=== PATIENT | male | born 1990 | race American Indian/Alaskan Native ===

== ENCOUNTER 2017-07-25 09:48 | Emergency (ER) | payer SELFPAY ==
[2017-07-25 10:10] VITALS: BP 152/91
[2017-07-25] MEDS ORDERED: TESSALON PERLES PO ONE (13:28)
--- NOTE | 2017-07-25 14:13 | XRay Report ---
ROUTINE CHEST, TWO VIEWS: HISTORY: Cough. The trachea, heart, mediastinal contour, lung hopper and bony thorax are unremarkable. IMPRESSION: Unremarkable chest x-ray.
--- NOTE | 2017-07-25 14:53 | Emergency Department Report ---
- General Chief Complaint: Upper Respiratory Infection Stated Complaint: COLD Time Seen by Provider: 07/25/17 13:28 Source: patient Mode of arrival: Ambulatory Limitations: No Limitations - History of Present Illness Initial Comments: This is a 26-year-old male nontoxic, well nourished in appearance, no acute signs of distress presents to the ED with c/o of productive cough and body aches 2 weeks. Patient denies any chest pain, shortness of breath, fever, chills, nausea, vomiting, wheezing, back pain, abdominal pain, numbness, tingling headache or stiff neck. Patient denies any sick contacts. Denies recent travels, long car rides or recent hospital stays. Abdomen the calf pain or calf tenderness. Denies hemoptysis. Patient states allergies to ibuprofen. Past medical history includes asthma and HIV. Patient stated follows up with a infection disease doctor and stated his CD4 count is normal in the 900s. MD Complaint: cough -: week(s) (2) Severity: mild Severity scale (0 -10): 0 Consistency: constant Improves With: nothing Worsens With: nothing Associated Symptoms: cough. denies: fever, chills, myalgias, diaphoresis, headache, rhinorrhea, nasal congestion, sore throat, stiff neck, chest pain, shortness of breath, abdominal pain, nausea, vomiting, diarrhea, dysuria, rash, confusion, right sweats, weight loss, epistaxis, hoarseness, ear pain Treatments Prior to Arrival: none - Related Data Previous Rx's Medication Instructions Recorded Last Taken Type Azithromycin [Zithromax Z-SALONI] 250 mg PO DAILY #6 tablet 07/25/17 Unknown Rx Benzonatate [Tessalon Perle] 100 mg PO Q6H #20 capsule 07/25/17 Unknown Rx Allergies Allergy/AdvReac Type Severity Reaction Status Date / Time ibuprofen Allergy Nausea Verified 07/25/17 10:06 ED Review of Systems ROS: Stated complaint: COLD Other details as noted in HPI Constitutional: denies: chills, fever Eyes: denies: eye pain, eye discharge, vision change ENT: denies: ear pain, throat pain Respiratory: cough. denies: shortness of breath, wheezing Cardiovascular: denies: chest pain, palpitations Endocrine: no symptoms reported Gastrointestinal: denies: abdominal pain, nausea, diarrhea Genitourinary: denies: urgency, dysuria Musculoskeletal: denies: back pain, joint swelling, arthralgia Skin: denies: rash, lesions Neurological: denies: headache, weakness, paresthesias Psychiatric: denies: anxiety, depression Hematological/Lymphatic: denies: easy bleeding, easy bruising ED Past Medical Hx - Past Medical History Previous Medical History?: Yes Hx Psychiatric Treatment: Yes (polysubstance abuse) Hx Asthma: Yes Hx HIV: Yes - Surgical History Past Surgical History?: No - Social History Smoking Status: Never Smoker Substance Use Type: Prescribed - Medications Home Medications: Home Medications Medication Instructions Recorded Confirmed Last Taken Type Azithromycin [Zithromax Z-SALONI] 250 mg PO DAILY #6 tablet 07/25/17 Unknown Rx Benzonatate [Tessalon Perle] 100 mg PO Q6H #20 capsule 07/25/17 Unknown Rx ED Physical Exam - General Limitations: No Limitations General appearance: alert, in no apparent distress - Head Head exam: Present: atraumatic, normocephalic, normal inspection - Eye Eye exam: Present: normal appearance, PERRL, EOMI. Absent: scleral icterus, conjunctival injection, nystagmus, periorbital swelling, periorbital tenderness Pupils: Present: normal accommodation - ENT ENT exam: Present: normal exam, normal orophraynx, mucous membranes moist, TM's normal bilaterally, normal external ear exam - Neck Neck exam: Present: normal inspection, full ROM. Absent: tenderness, meningismus, lymphadenopathy, thyromegaly - Respiratory Respiratory exam: Present: normal lung sounds bilaterally. Absent: respiratory distress, wheezes, rales, rhonchi, stridor, chest wall tenderness, accessory muscle use, decreased breath sounds, prolonged expiratory - Cardiovascular Cardiovascular Exam: Present: regular rate, normal rhythm, normal heart sounds. Absent: irregular rhythm, systolic murmur, diastolic murmur, rubs, gallop - GI/Abdominal GI/Abdominal exam: Present: soft, normal bowel sounds. Absent: distended, tenderness, guarding, rebound, rigid, diminished bowel sounds - Rectal Rectal exam: Present: deferred - Extremities Exam Extremities exam: Present: normal inspection, full ROM, normal capillary refill. Absent: tenderness, pedal edema, joint swelling, calf tenderness - Back Exam Back exam: Present: normal inspection, full ROM. Absent: tenderness, CVA tenderness (R), CVA tenderness (L), muscle spasm, paraspinal tenderness, vertebral tenderness, rash noted - Neurological Exam Neurological exam: Present: alert, oriented X3, CN II-XII intact, normal gait, reflexes normal - Psychiatric Psychiatric exam: Present: normal affect, normal mood - Skin Skin exam: Present: warm, dry, intact, normal color. Absent: rash ED Course Vital Signs 07/25/17 10:06 Temperature 97.8 F Pulse Rate 102 H Respiratory 20 Rate Blood Pressure 152/91 O2 Sat by Pulse 94 Oximetry - Reevaluation(s) Reevaluation #1: 07/25/17 15:02 Patient is speaking in full sentences with no signs of distress noted. ED Medical Decision Making - Medical Decision Making This is a 26-year-old male that presents with upper respiratory infection. Patient is stable and was examined by me. Chest x-ray has been obtained and dictated the radiologist with normal exam. Influenza obtained and negative. Patient notified of x-ray results were noted by the patient. Patient is treated with azithromycin and Tessalon Perle. Patient was instructed to Follow- up with a primary care doctor in 3-5 days or if symptoms worsen and continue return to emergency room as soon as possible. At time time of discharge, the patient does not seem toxic or ill in appearance. No acute signs of distress noted. Patient agrees to discharge treatment plan of care. No further questions noted by the patient.. Critical care attestation.: If time is entered above; I have spent that time in minutes in the direct care of this critically ill patient, excluding procedure time. ED Disposition Clinical Impression: Upper respiratory infection Qualifiers: URI type: unspecified URI Qualified Code(s): J06.9 - Acute upper respiratory infection, unspecified Disposition: DC- TO HOME OR SELFCARE Is pt being admited?: No Does the pt Need Aspirin: No Condition: Stable Instructions: Upper Respiratory Infection (ED), Azithromycin (By mouth), Benzonatate (By mouth) Additional Instructions: Follow-up with a primary care doctor in 3-5 days or if symptoms worsen and continue return to emergency room as soon as possible. Prescriptions: Azithromycin [Zithromax Z-SALONI] 250 mg PO DAILY #6 tablet Benzonatate [Tessalon Perle] 100 mg PO Q6H #20 capsule Referrals: PRIMARY CARE, [Primary Care Provider] - 3-5 Days NETO JIM MD [Staff Physician] - 3-5 Days [facility] [Outside] - 3-5 Days [facility] [Outside] - 3-5 Days Forms: Work/School Release Form(ED)
== END 2017-07-25 15:30 | disposition home or self-care (01) ==
LOC: ED 09:48
DX: J06.9 Acute upper respiratory infection, unspecified (principal); Z88.6 Allergy status to analgesic agent
CPT/HCPCS: 71020; 87400; 99283

== ENCOUNTER 2020-07-18 12:37 | Emergency (ER) | payer SELFPAY ==
[2020-07-18 12:55] VITALS: BP 139/97
--- NOTE | 2020-07-18 13:11 | Event Note ---
ED Screening Note Date of service: 07/18/20 Time: 13:09 ED Screening Note: 29-year-old -Greek male presents to the emergency room stating that he has been at [facility] and they have not been able to issue his psych meds and his seizure medications. Patient states that he has been out of meds for 4 days. Patient states that he started to hallucinate last night and have a headache. Patient denies having a seizure. Patient denies any homicidal or suicidal ideation. Patient brings in his discharge paperwork from [place]. Medications are Cymbalta 60 mg by mouth twice a day Keppra 500 mg twice a day by mouth Norvasc 10 mg by mouth daily Seroquel 100 mg by mouth at night and Seroquel 25 mg by mouth twice a day. This initial assessment/diagnostic orders/clinical plan/treatment(s) is/are subject to change based on patients health status, clinical progression and re- assessment by fellow clinical providers in the ED. Further treatment and workup at subsequent clinical providers discretion. Patient/guardian urged not to elope from the ED as their condition may be serious if not clinically assessed and managed. Initial orders include:
== END 2020-07-18 20:00 | disposition left against medical advice (07) ==
LOC: ED 12:37
DX: R10.9 Unspecified abdominal pain (principal); Z53.21 Procedure and treatment not carried out due to patient leaving prior to being seen by health care provider

== ENCOUNTER 2020-07-24 00:19 | Emergency (ER) | payer SELFPAY ==
--- NOTE | 2020-07-24 02:48 | XRay Report ---
CHEST 2 VIEWS, 07/24/2020 1:25 AM INDICATION: Cough COMPARISON: Chest radiograph, 07/25/2017 FINDINGS: Support devices: None. Heart: The cardiac silhouette is normal in size. Lungs/pleura: The lungs are clear of focal airspace disease or significant pleural effusion Additional findings: No significant acute abnormality. IMPRESSION: 1. No evidence of acute cardiopulmonary process. Signer Name: Kelli Najera MD Signed: 07/24/2020 2:43 AM Workstation Name: [id number]
[2020-07-24 03:15] LABS: Bilirubin,Urine NEG (Negative); Blood,Urine NEG (Negative); Color,Urine Yellow (Yellow); Mucus,Urine FEW /HPF; Protein,Urine <15 mg/dL mg/dL (Negative); Urobilinogen,Urine < 2.0 mg/dL (<2.0); WBC,Urine < 1.0 /HPF (0.0-6.0)
[2020-07-24 03:54] LABS: Basophils % (Auto) 0.4 % (0.0-1.8); Eosinophils # (Auto) 0.1 K/mm3 (0.0-0.4); Eosinophils % (Auto) 1.1 % (0.0-4.3); Hematocrit 43.9 % (35.5-45.6); Lymphocytes # (Auto) 2.6 K/mm3 (1.2-5.4); Lymphocytes % (Auto) 37.1 % (13.4-35.0); Mean Corpuscular HGB Conc 34 % (32-34); Mean Corpuscular Volume 91 fl (84-94); Monocytes # (Auto) 0.6 K/mm3 (0.0-0.8); Monocytes % (Auto) 7.9 % (0.0-7.3); Platelet Count 266 K/mm3 (140-440); Red Blood Count 4.84 M/mm3 (3.65-5.03); Red Cell Distribution Width 13.8 % (13.2-15.2)
[2020-07-24 04:13] LABS: Alanine Aminotransferase 22 units/L (7-56); Albumin 4.6 g/dL (3.9-5); BUN/Creatinine Ratio 18; Blood Urea Nitrogen 14 mg/dL (9-20); Calcium 10.2 mg/dL (8.4-10.2); Hemolysis Index 4
--- NOTE | 2020-07-24 04:47 | Event Note ---
ED Screening Note Date of service: 07/24/20 Time: 04:47 ED Screening Note: Patient complains of left lower quadrant pain and diarrhea with coughing x1 week History of Crohn's Denies hematochezia Also states mild shortness of breath This initial assessment/diagnostic orders/clinical plan/treatment(s) is/are subject to change based on patients health status, clinical progression and re- assessment by fellow clinical providers in the ED. Further treatment and workup at subsequent clinical providers discretion. Patient/guardian urged not to elope from the ED as their condition may be serious if not clinically assessed and managed. Initial orders include: Labs CT
[2020-07-24] MEDS ORDERED: SODIUM CHLORIDE 0.9% 1000 ML 1,000 ML IV ONE (05:01)
[2020-07-24] MEDS ORDERED: ONDANSETRON 4 MG/2 ML INJ IV ONE (05:01)
--- NOTE | 2020-07-24 05:02 | Emergency Department Report ---
ED Abdominal Pain HPI - General Chief Complaint: Abdominal Pain Stated Complaint: ABD PAIN/NAUSEA PUI?: No Time Seen by Provider: 07/24/20 04:51 Source: patient Mode of arrival: Ambulatory Limitations: No Limitations - History of Present Illness Initial Comments: Patient is a 29-year-old male that presents emergency room with complaints of left lower quadrant abdominal pain, diarrhea, nausea, cough. Patient states symptoms been going on for 1 week. Patient states his symptoms are worsening. Patient states his cough is dry. Patient denies runny nose. Patient denies loss of smell. Patient states he has not been tested for COVID-19. Patient states that pain in his left lower quadrant is nonradiating. Patient states it is a 10 out of 10. Patient states the pain is better with rest and worse with movement and palpation. Patient denies blood in his diarrhea and his vomitus. Patient denies chest pain. Patient denies shortness of breath. Patient denies fever and chills. MD Complaint: abdominal pain -: Sudden Location: LLQ Radiation: none Migration to: no migration Severity: severe Severity scale (0 -10): 10 Quality: stabbing Consistency: constant Improves With: rest Worsens With: movement, other Associated Symptoms: nausea, vomiting, diarrhea. denies: fever, chills, constipation, dysuria, hematemesis, hematochezia, melena, hematuria, syncope - Related Data Previous Rx's Medication Instructions Recorded Last Taken Type Azithromycin [Zithromax Z-SALONI] 250 mg PO DAILY #6 tablet 07/25/17 Unknown Rx Benzonatate [Tessalon Perle] 100 mg PO Q6H #20 capsule 07/25/17 Unknown Rx Azithromycin [Zithromax TAB] 500 mg PO QDAY 5 Days #5 tablet 07/24/20 Unknown Rx Dexamethasone [Taperdex] 1.5 mg PO DAILY 7 Days #1 tab.ds.pk 07/24/20 Unknown Rx Ondansetron [Zofran Odt] 4 mg PO Q4HR PRN #20 tab.rapdis 07/24/20 Unknown Rx Allergies Allergy/AdvReac Type Severity Reaction Status Date / Time ibuprofen Allergy Nausea Verified 07/25/17 10:06 ED Review of Systems ROS: Stated complaint: ABD PAIN/NAUSEA Other details as noted in HPI Constitutional: denies: chills, fever Eyes: denies: eye pain, eye discharge, vision change ENT: denies: ear pain, throat pain Respiratory: cough. denies: shortness of breath, wheezing Cardiovascular: denies: chest pain, palpitations Endocrine: no symptoms reported Gastrointestinal: abdominal pain, nausea, vomiting, diarrhea. denies: constipation, hematemesis, melena, hematochezia Genitourinary: denies: urgency, dysuria Musculoskeletal: denies: back pain, joint swelling, arthralgia Skin: denies: rash, lesions Neurological: denies: headache, weakness, paresthesias Psychiatric: denies: anxiety, depression Hematological/Lymphatic: denies: easy bleeding, easy bruising ED Past Medical Hx - Past Medical History Previous Medical History?: Yes Hx Psychiatric Treatment: Yes (polysubstance abuse) Hx Asthma: Yes Hx HIV: Yes - Surgical History Past Surgical History?: No - Family History Family history: no significant - Social History Smoking Status: Current Every Day Smoker Substance Use Type: None - Medications Home Medications: Home Medications Medication Instructions Recorded Confirmed Last Taken Type Azithromycin [Zithromax Z-SALONI] 250 mg PO DAILY #6 tablet 07/25/17 Unknown Rx Benzonatate [Tessalon Perle] 100 mg PO Q6H #20 capsule 07/25/17 Unknown Rx Azithromycin [Zithromax TAB] 500 mg PO QDAY 5 Days #5 tablet 07/24/20 Unknown Rx Dexamethasone [Taperdex] 1.5 mg PO DAILY 7 Days #1 tab.ds.pk 07/24/20 Unknown Rx Ondansetron [Zofran Odt] 4 mg PO Q4HR PRN #20 tab.rapdis 07/24/20 Unknown Rx ED Physical Exam - General Limitations: No Limitations General appearance: alert, in no apparent distress - Head Head exam: Present: atraumatic, normocephalic - Eye Eye exam: Present: normal appearance - ENT ENT exam: Present: mucous membranes moist - Neck Neck exam: Present: normal inspection - Respiratory Respiratory exam: Present: normal lung sounds bilaterally. Absent: respiratory distress - Cardiovascular Cardiovascular Exam: Present: regular rate, normal rhythm. Absent: systolic murmur, diastolic murmur, rubs, gallop - GI/Abdominal GI/Abdominal exam: Present: soft, tenderness (Left lower quadrant tenderness to palpation.), normal bowel sounds - Rectal Rectal exam: Present: deferred - Extremities Exam Extremities exam: Present: normal inspection - Back Exam Back exam: Present: normal inspection - Neurological Exam Neurological exam: Present: alert, oriented X3 - Psychiatric Psychiatric exam: Present: normal affect, normal mood - Skin Skin exam: Present: warm, dry, intact, normal color. Absent: rash ED Course Vital Signs 07/24/20 01:54 Temperature 97.5 F L Pulse Rate 78 Respiratory 18 Rate Blood Pressure 148/93 O2 Sat by Pulse 98 Oximetry - Reevaluation(s) Reevaluation #1: Patient states his pain is better. Patient states his nausea and vomiting are better. I discussed all results and clinical findings with patient. I discussed plan of care with patient. Patient agrees with plan of care. Patient is stable for discharge. Patient will be discharged home. Patient given discharge instructions. Patient voiced understanding of discharge instructions. 07/24/20 06:13 ED Medical Decision Making - Lab Data Result diagrams: 07/24/20 02:50 07/24/20 02:50 - Radiology Data Radiology results: report reviewed, image reviewed interpreted by me: Chest x-ray: No pneumonia, no pneumothorax, no foreign body, no osseous findings, no acute findings CT scan report reviewed and is negative for acute findings. - Medical Decision Making Patient is a 29-year-old male who presents emergency room with complaints of abdominal pain, nausea, vomiting, diarrhea, cough. Patient has been on for 1 week. Patient did not have an outpatient Covid test. Patient will require a outpatient Covid test to rule out COVID-19. Patient had labs done which were essentially unremarkable. Patient had a chest x-ray which was negative for acute findings. Patient had a CT scan of the abdomen due to his tenderness over the left lower quadrant. Patient was very tender on exam. Patient's CT scan was negative for acute findings. Patient is stable for discharge. Patient clinical findings consistent with gastroenteritis, URI most likely secondary to Covid, nausea, vomiting, diarrhea. Patient is stable for discharge. Patient discharged home. - Differential Diagnosis Covid, URI, gastroenteritis, diarrhea, nausea, vomiting, abdominal pain, Critical care attestation.: If time is entered above; I have spent that time in minutes in the direct care of this critically ill patient, excluding procedure time. ED Disposition Clinical Impression: Person under investigation for COVID-19, Cough, Gastroenteritis Nausea & vomiting Qualifiers: Vomiting type: unspecified Vomiting Intractability: non-intractable Qualified Code(s): R11.2 - Nausea with vomiting, unspecified Diarrhea Qualifiers: Diarrhea type: unspecified type Qualified Code(s): R19.7 - Diarrhea, unspecified Abdominal pain Qualifiers: Abdominal location: left lower quadrant Qualified Code(s): R10.32 - Left lower quadrant pain URI (upper respiratory infection) Qualifiers: URI type: unspecified URI Qualified Code(s): J06.9 - Acute upper respiratory infection, unspecified Disposition: TO HOME OR SELFCARE Is pt being admited?: No Does the pt Need Aspirin: No Condition: Stable Instructions: Diarrhea, Adult, Cough, Adult, [id number], Viral Gastroenteritis, Adult, [id number], Nausea and Vomiting, Adult, [id number], COVID-19: How to Protect Yourself and Others - [facility] [place], COVID-19, Prevent the Spread of COVID-19 if You Are Sick - [facility] [place] Additional Instructions: Patient to follow-up with primary care in 2 to 3 days. Patient to follow-up with health department and local COVID-19 testing site with in 2 days. Patient to self quarantine for 14 days. Patient to eat a brat diet. Patient to rest. Patient to increase water. Patient to take Tylenol as needed for pain. Patient to take meds as directed. Patient to return to the ER if condition worsens, changes or new symptoms arise. Prescriptions: Dexamethasone [Taperdex] 1.5 mg PO DAILY 7 Days #1 tab.ds.pk Azithromycin [Zithromax TAB] 500 mg PO QDAY 5 Days #5 tablet Ondansetron [Zofran Odt] 4 mg PO Q4HR PRN #20 tab.rapdis PRN Reason: Nausea And Vomiting Referrals: JAMAL ARMSTRONG MD [Primary Care Provider] - 2-3 Days Time of Disposition: 05:59
[2020-07-24] MEDS ORDERED: KETOROLAC 30 MG/1 ML INJ ONE (05:42)
[2020-07-24] MEDS ORDERED: KETOROLAC 30 MG/1 ML INJ IV ONE (05:42)
--- NOTE | 2020-07-24 05:50 | Cat Scan Report ---
CT ABDOMEN AND PELVIS WITH IV CONTRAST INDICATION: Left lower quadrant pain and diarrhea TECHNIQUE: Following the administration of intravenous contrast, multiple axial CT images of the abdo men and pelvis were acquired. Sagittal and coronal reformats were obtained. All CT performed at this facility utilize dose reduction techniques including automated exposure control, iterative reconstru ction and weight based dosing when appropriate to reduce patient radiation dose to as low as reasonab ly achievable. COMPARISON: None FINDINGS: Limited imaging of the bilateral lung bases demonstrates no acute abnormality. ABDOMEN: The liver, spleen, gallbladder, pancreas, bilateral adrenal glands, bilateral kidneys show no evidenc e of acute abnormality. The abdominal aorta is normal in caliber. There is no evidence of bowel obstr uction or free fluid. The appendix is visualized and appears normal. PELVIS: No free fluid is seen within the pelvis. The urinary bladder appears normal. BONES AND SOFT TISSUES: Evaluation of bony structures demonstrates no acute bony abnormality. Soft ti ssue structures appear grossly normal. IMPRESSION: 1. No evidence of acute inflammatory or obstructive process within the abdomen or pelvis. Signer Name: Kelli Najera MD Signed: 07/24/2020 5:46 AM Workstation Name: [id number]
[2020-07-24 07:23] VITALS: BP 116/72
--- NOTE | 2020-07-24 16:19 | Emergency Department Report ---
Blank Doc - Documentation Documentation: Call patient on phone number that he left in his chart that he left his medica tions and ear phones. Patient has listed no emergency contact.
== END 2020-07-24 07:22 | disposition home or self-care (01) ==
LOC: ED 00:19
DX: K52.9 Noninfective gastroenteritis and colitis, unspecified (principal); J06.9 Acute upper respiratory infection, unspecified; I10 Essential (primary) hypertension; F17.200 Nicotine dependence, unspecified, uncomplicated; Z21 Asymptomatic human immunodeficiency virus [HIV] infection status; J45.909 Unspecified asthma, uncomplicated; Z01.84 Encounter for antibody response examination; Z79.899 Other long term (current) drug therapy; Z88.8 Allergy status to other drugs, medicaments and biological substances
CPT/HCPCS: 36415; 71046; 74177; 80053; 81001; 83690; 85025; 96361; 96374; 96375; 99284; J1885; J2405; J7030; Q9967